=== PATIENT | female | born 1970 | race Two or more races ===

== ENCOUNTER 2017-10-25 18:50 | Emergency (ER) | payer OTHER, SELFPAY ==
[~2017-10-25] VITALS: Ht 162.6 cm; Wt 105.3 kg
[2017-10-25] MEDS ORDERED: ASPIRIN 81 MG TABLET CHEW PO ONE (19:30)
[2017-10-25 19:44] LABS: BASOPHILS # (AUTO) 0.05 x10^3/uL (0-0.1); BASOPHILS % (AUTO) 1 % (0-1); EOSINOPHILS # (AUTO) 0.18 x10^3/uL (0-0.4); EOSINOPHILS % (AUTO) 3 % (1-7); LYMPHOCYTES # (AUTO) 3.43 x10^3/uL (1-3.4); LYMPHOCYTES % (AUTO) 52 % (22-44); MD NO; MEAN CORPUSCULAR HEMOGLOBIN 26.4 pg (27.0-34.8); MEAN CORPUSCULAR HGB CONC 32.7 g/dL (32.4-35.8); MEAN CORPUSCULAR VOLUME 80.8 fL (80-100); MEAN PLATELET VOLUME 7.4 fL (7.4-10.4); MONOCYTES % (AUTO) 11 % (2-9); NEUTROPHILS # (AUTO) 2.18 x10^3/uL (1.8-6.8); NEUTROPHILS % (AUTO) 33 % (42-75); PLATELET COUNT 228 x10^3/uL (130-400); RED BLOOD COUNT 5.09 x10^6/uL (3.82-5.3); RED CELL DISTRIBUTION WIDTH 14.4 % (9.6-15.2)
[2017-10-25 19:56] LABS: ALANINE AMINOTRANSFERASE 149 U/L (12-78); ALBUMIN 3.2 g/dL (3.4-5.0); ANION GAP 7 mmol/L (5-15); CALCIUM 8.4 mg/dL (8.5-10.1); CHLORIDE 108 mmol/L (98-107)
[2017-10-25 20:01] LABS: ALKALINE PHOSPHATASE 138 U/L (45-117); CREATININE 0.75 mg/dL (0.55-1.02); TOTAL PROTEIN 7.5 g/dL (6.4-8.2)
[2017-10-25 20:04] LABS: BILIRUBIN,TOTAL 0.4 mg/dL (0.2-1.0)
[2017-10-25] MEDS ORDERED: ASPIRIN 81 MG TABLET CHEW ONE (21:09)
[2017-10-25 21:47] LABS: TROPONIN I < 0.015 ng/mL (0.000-0.045)
[2017-10-25] MEDS ORDERED: MAALOX/HYOSCYAMINE/LIDOCAINE 45 ML BTL PO ONE (22:00)
[2017-10-25] MEDS ORDERED: MAALOX/HYOSCYAMINE/LIDOCAINE 45 ML BTL ONE (22:09)
[2017-10-25 23:47] LABS: TROPONIN I < 0.015 ng/mL (0.000-0.045)
[2017-10-26 00:46] VITALS: BP 140/98
== END 2017-10-26 00:48 | disposition home or self-care (01) ==
LOC: ED 21:39
DX: R07.89 Other chest pain (principal); J45.909 Unspecified asthma, uncomplicated; Z87.891 Personal history of nicotine dependence
CPT/HCPCS: 36415; 71045; 80053; 84484; 84703; 85025; 93005; 99285